=== PATIENT | female | born 1955 | race Two or more races ===

== ENCOUNTER 2023-01-31 09:24 | Emergency (ER) | payer OTHER ==
[~2023-01-31] VITALS: Ht 167.6 cm; Wt 90.7 kg
[~2023-01-31 09:24] MED LIST: LOSARTAN POTASS50 MG
[2023-01-31] MEDS ORDERED: AMOX1TAB5 PO (10:57)
== END 2023-01-31 11:29 | disposition home or self-care (01) ==
LOC: ER 09:24
DX: L03.012 Cellulitis of left finger (principal); I10 Essential (primary) hypertension
CPT/HCPCS: 11730; 26010; 96365; 99284; J3490

== ENCOUNTER 2023-08-13 09:37 | Emergency (ER) | payer OTHER ==
[~2023-08-13] VITALS: Ht 162.6 cm; Wt 90.7 kg
[~2023-08-13 09:37] MED LIST changes: +AMOX1TAB5 PO
[2023-08-13] MEDS ORDERED: BUDESONIDE 0.5 MG/2 ML AMPUL.NEB IH STA (10:27)
[2023-08-13] MEDS ORDERED: ALBUTEROL SULFATE 1.25 MG/3 ML AMPUL.NEB IH SCH (10:30)
[2023-08-13 11:13] LABS: HEMATOCRIT 39.9 % (36.0-45.00); HEMOGLOBIN 13.8 g/dL (12.0-15.00); MEAN CELL VOLUME 87.6 fL (80.00-100.00); MEAN CORPUSCULAR HEMOGLOBIN 30.2 pg (27.00-32.0); MEAN CORPUSCULAR HGB CONC 34.4 g/dl (32.0-36.0); PLATELET COUNT 258 K/uL (150-450); RED BLOOD COUNT 4.56 M/uL (4.00-6.00); RED CELL DISTRIBUTION WIDTH 13.5 % (11.5-14.5)
[2023-08-13] MEDS ORDERED: BUDESONIDE0.5 MG/2 M IH (15:10)
[2023-08-13] MEDS ORDERED: ALBUTEROL2.5 MG/3 M IH (15:10)
== END 2023-08-13 15:13 | disposition home or self-care (01) ==
LOC: ER 09:37
PROVIDERS: Emergency Medicine
DX: J45.901 Unspecified asthma with (acute) exacerbation (principal); Z20.822 Contact with and (suspected) exposure to COVID-19

== ENCOUNTER 2025-03-09 08:00 | Inpatient (IN) | payer OTHER ==
[~2025-03-09] VITALS: Ht 165.1 cm; Wt 90.7 kg
[~2025-03-09 08:00] MED LIST changes: +ALBUTEROL2.5 MG/3 M IH; +BUDESONIDE0.5 MG/2 M IH
[2025-03-09 08:33] VITALS: BP 138/88
[2025-03-09 09:10] LABS: RH POSITIVE
[2025-03-11] MEDS ORDERED: METRONIDAZOLE/SODIUM CHLORIDE 500 MG/100 ML PIGGYBACK IV ONE (12:30)
[2025-03-11] MEDS ORDERED: CEFAZOLIN SODIUM 1,000 MG VIAL ONE (12:30)
[2025-03-11] MEDS ORDERED: POVIDONE-IODINE 118 ML BOTT TOP ONE (15:47)
[2025-03-11] MEDS ORDERED: HEMOSTATIC MATRIX WITH THROMBIN KIT TOP ONE (17:22)
[2025-03-11] MEDS ORDERED: SUGAMMADEX SODIUM 200 MG/2 ML VIAL IV ONE (17:42)
[2025-03-11] MEDS ORDERED: MORPHINE SULFATE 4 MG/ML VIAL IV ONE ×2 (18:35→19:05)
[2025-03-11] MEDS ORDERED: RINGERS SOLUTION,LACTATED 1,000 ML IV SCH (19:00)
[2025-03-11] MEDS ORDERED: MORPHINE SULFATE 4 MG/ML CARTRIDGE IV PRN (19:00)
[2025-03-11] MEDS ORDERED: KETOROLAC TROMETHAMINE 30 MG VIAL IV ONE (19:00)
[2025-03-11] MEDS ORDERED: KETOROLAC TROMETHAMINE 30 MG VIAL ONE (19:47)
[2025-03-11] MEDS ORDERED: SIMETHICONE 125 MG CAPSULE PO SCH (21:00)
[2025-03-11] MEDS ORDERED: DOCUSATE SODIUM 100MG CAP PO SCH (21:00)
[2025-03-11] MEDS ORDERED: CELECOXIB 200 MG CAPSULE PO SCH (21:00)
[2025-03-11] MEDS ORDERED: GABAPENTIN 300 MG CAPSULE PO SCH (21:00)
[2025-03-11] MEDS ORDERED: FAMOTIDINE/PF 20 MG/2 ML VIAL IV PUSH SCH (21:00)
[2025-03-11] MEDS ORDERED: FAMOTIDINE/PF 20 MG/2 ML VIAL ONE (21:12)
[2025-03-11 23:09] LABS: BASO % 0.2 % (0.1-1.2); EOS # 0.00 (0.04-0.54); EOS % 0.0 % (0.7-7.0); LYMPH # 1.43 (1.18-3.74); LYMPH % 8.7 % (19.3-53.1); MEAN PLATELET VOLUME 9.40 fl (9.4-12.4); MONO # 1.20 (0.24-0.82); MONO % 7.3 % (4.7-12.5); NEUT # 13.76 (1.56-6.13); NEUT % 83.4 % (34.0-71.1); RED CELL DISTRIBUTION WIDTH 13.0 % (11.6-14.4)
[2025-03-11 23:31] LABS: BUN CREA RATIO 19.0 (7.0-25.0); CREATININE SERUM 0.63 mg/dL (0.55-1.02); GFR 93.69; GLUCOSE FASTING 134.0 mg/dL (65-100); OSMOLALITY SERUM 276.0 MOSM/KG (275-295)
[2025-03-12] MEDS ORDERED: ACETAMINOPHEN 500 MG GEL..CAP PO SCH
[2025-03-12] MEDS ORDERED: CEFAZOLIN SODIUM 1,000 MG VIAL ONE (00:09)
[2025-03-12] MEDS ORDERED: ACETAMINOPHEN 500 MG GEL..CAP PO ONE (00:09)
[2025-03-12 01:00] VITALS: BP 147/84
[2025-03-12] MEDS ORDERED: METOCLOPRAMIDE HCL 5 MG/ML VIAL IV SCH (01:00)
[2025-03-12] MEDS ORDERED: CEFAZOLIN SODIUM 1,000 MG VIAL IV SCH (01:00)
[2025-03-12 06:00] LABS: BASO % 0.2 % (0.1-1.2); EOS # 0.00 (0.04-0.54); EOS % 0.0 % (0.7-7.0); LYMPH # 1.77 (1.18-3.74); LYMPH % 11.3 % (19.3-53.1); MEAN PLATELET VOLUME 9.80 fl (9.4-12.4); MONO # 1.45 (0.24-0.82); MONO % 9.3 % (4.7-12.5); NEUT # 12.34 (1.56-6.13); NEUT % 78.8 % (34.0-71.1); RED CELL DISTRIBUTION WIDTH 13.2 % (11.6-14.4)
[2025-03-12 06:32] LABS: BUN CREA RATIO 17.0 (7.0-25.0); CREATININE SERUM 0.72 mg/dL (0.55-1.02); GFR 80.31; GLUCOSE FASTING 112.0 mg/dL (65-100); OSMOLALITY SERUM 274.0 MOSM/KG (275-295)
[2025-03-12] MEDS ORDERED: ENOXAPARIN SODIUM 40 MG/0.4 ML SYRINGE SUBCUTANEO SCH (09:00)
[2025-03-12 09:15] VITALS: BP 107/62; O2SAT 97
[2025-03-12] MEDS ORDERED: KETOROLAC TROMETHAMINE 30 MG VIAL IV SCH (12:00)
[2025-03-12 16:35] VITALS: BP 126/85; O2SAT 97
[2025-03-13] VITALS: BP 108/73
[2025-03-13 08:51] VITALS: BP 142/80
[2025-03-13] MEDS ORDERED: LOSARTAN/HYDROCHLOROTHIAZIDE 1 UDTAB TABLET PO SCH (09:00)
== END 2025-03-13 12:51 | disposition home or self-care (01) | DRG 743 ==
LOC: SURH 03-11 08:00 → O/R 03-11 12:00 → SURH 03-11 16:45 → OB/GYN 03-11 19:46
PROVIDERS: Obstetrics & Gynecology; ADMIT Obstetrics & Gynecology Gynecologic Oncology; ATTEND Obstetrics & Gynecology Gynecologic Oncology
PROC: 0UT70ZZ Resection of Bilateral Fallopian Tubes, Open Approach (ICD-10-PCS; 2025-03-11)
PROC: 0UT20ZZ Resection of Bilateral Ovaries, Open Approach (ICD-10-PCS; 2025-03-11)
PROC: 07BC0ZZ Excision of Pelvis Lymphatic, Open Approach (ICD-10-PCS; 2025-03-11)
PROC: 0UT90ZZ Resection of Uterus, Open Approach (ICD-10-PCS; principal; 2025-03-11 16:45)
DX: D25.1 Intramural leiomyoma of uterus (principal); D25.2 Subserosal leiomyoma of uterus; N80.03 Adenomyosis of the uterus; D36.0 Benign neoplasm of lymph nodes